=== PATIENT | male | born 1960 | race Caucasian/White ===

== ENCOUNTER → 2022-07-29 | Outpatient (CLI) | payer BC ==
--- NOTE | 2022-07-29 10:09 | NM ---
EXAMINATION TYPE: NM stress cardiolite complete DATE OF EXAM: 07/29/2022 COMPARISON: NONE HISTORY: Chest pain TECHNIQUE: After the intravenous administration of 10.2 mCi Tc 99m Sestamibi - Rest images obtained 45 minutes post injection. The patient exercised using a JONI protocol and 1 minute prior to peak exercise was injected with 26.2 mCi Tc 99m Sestamibi - Stress images obtained 30 minutes post injecti on. FINDINGS: Targeted heart rate was achieved during performance of the study. Review of stress and rest SPECT fany ges demonstrates no distinct perfusion abnormality. Gated analysis shows normal wall motion with an estimated left ventricular ejection fraction of 74 %. IMPRESSION: No scintigraphic evidence for reversible ischemia
--- NOTE | 2022-07-29 12:46 | CA ---
Exercise Nuclear Stress Test Report Name: Nataliia Pretty Exam Date: 07/29/2022 09:07 Exam Location: [facility] Ht (in): 72 Wt (lb): 225 BSA: 2.24 Ordering Phys: Randy Baez MD Referring Phys: Randy Baez MD Technologist: Jc Kiser Age: 62 Gender: M : 1960 Procedure CPT: Indications: R07.9 I49.8 ICD-10 Codes: Patient History: Medications: CELEXA,,,,,, ZYRTEC,,,,,, MELOXICAM,,,,,, SOTYKTA,,,,, Meds past 24 hrs: Pretest Chest Pain: STRESS TEST Valentino Protocol Exercise Duration (min:sec): 06:[address] Depressions (mm): Angina Score: Pace Score: Resting HR (bpm): 57 Peak HR (bpm): 142 Resting BP (mmHg): 136 / 77 Peak BP (mmHg): 216 / 78 MPHR: 156 Target HR: 133 % MPHR: 91 METS: 7.1 Total Dose: Peak Dose: Atropine: Double Product: 39274 BP Response: Stress Termination: TARGET HR REACHED/MAX EXERTION Stress Symptoms: DIFFICULTY IN BREATHING Stress Summary: ECG ANALYSIS Resting ECG: Stress ECG: CONCLUSIONS Excellent exercise tolerance Mild EKG changes in response to exercise The patient did have atrial tachycardia as well Dr. Miah Cifuentes MD (Electronically Signed) Final Date: 29 July 2022 12:45
== END | disposition home or self-care (01) ==
LOC: RADNMMAIN 07:41
PROVIDERS: ATTEND Family Medicine
DX: I47.1 Supraventricular tachycardia (principal); I49.8 Other specified cardiac arrhythmias; R94.31 Abnormal electrocardiogram [ECG] [EKG]
CPT/HCPCS: 93017; 78452; A9500

== ENCOUNTER → 2023-07-28 | Outpatient (CLI) | payer MEDICARE ==
[2023-07-28 17:06] LABS: HCT 41.6 % (39.6-50.0); MCH 29.5 pg (27.0-32.0); MCHC 33.7 g/dL (32.0-37.0); MCV 87.8 FL (80.0-97.0); Mean Platelet Volume 9.9 FL (9.5-12.2); NRBC Per 100 WBC 0 X 10*3/uL (0.00-0.01); Platelet Count 215 X 10*3/uL (140-440); RBC 4.74 X 10*6/uL (4.40-5.60); RDW 12.9 % (11.5-14.5); WBC 5.47 X 10*3/uL (4.50-10.00)
[2023-07-28 17:35] LABS: BUN/Creat Ratio 11.58 Ratio (12.00-20.00); Blood Urea Nitrogen 13.9 mg/dL (9.0-27.0); Calcium 9.3 mg/dL (8.7-10.3); Carbon Dioxide 28.7 mmol/L (21.6-31.8); Chloride 104 mmol/L (96-109); Glucose 110 mg/dL (70-110); Potassium 4.2 mmol/L (3.5-5.5); Sodium 141 mmol/L (135-145)
== END | disposition home or self-care (01) ==
LOC: LABWHC1 11:13
PROVIDERS: ATTEND Internal Medicine Cardiovascular Disease
DX: R06.1 Stridor (principal)
CPT/HCPCS: 36415; 80048; 84443; 85027

== ENCOUNTER → 2024-03-11 | Outpatient (CLI) | payer MEDICARE ==
--- NOTE | 2024-03-11 15:37 | MR ---
EXAMINATION TYPE: MR Prostate wo/w con DATE OF EXAM: 03/11/2024 7:39 AM COMPARISON: CLINICAL INDICATION: Male, 63 years old with history of N40.0 BENIGN PROSTATIC HYPERPLASIA; Benign hy perplasia, elevated PSA TECHNIQUE: Multi-planar, multi-sequence imaging of the pelvis is performed prior to and following the uncomplicated administration of bolus intravenous gadolinium. CONTRAST: 10 Gadobutrol Interpretive Criteria: PI-RADS v2.1 SERUM PSA: 05/2023=8.42 11/2023=6.96 SURGICAL PATHOLOGY: No data available. FINDINGS: Prostatic dimensions: 5.8 x 7.7 x 4.7 cm. Ellipsoid Volume:109.90 (PSA density=0.06 ng/mL/mL) CENTRAL GLAND (Central and Transition Zones/CZ+TZ): Multiple bilateral, heterogenous appearing hypertrophic stromal nodules, without suspicious lesion. M edian lobe hypertrophy with protrusion into the base of the bladder. (PI-RADS 2) PERIPHERAL ZONE (PZ): Bilateral linear, indistinct wedgelike areas of low ADC, and low T2 signal, No evidence of masslike a bnormality, or localized perfusional hypervascularity, to further suggest a focus of clinically signi ficant prostate cancer. (PI-RADS 2) SEMINAL VESICLES (SV): Symmetric and unremarkable. PERIPROSTATIC TISSUES: Unremarkable. LYMPH NODES: No enlarged pelvic lymph node. REMAINING PELVIS: Bladder wall is within normal limits given distention. No abnormal free or organized intrapelvic fluid collection. No pathologic bowel dilation or mural thickening. Colonic diverticula are present. No hernia visualized OSSEOUS STRUCTURES: No suspicious osseous abnormality. IMPRESSION: 1. No specific features for high-risk prostate cancer. Maximum PI-RADS score: 2. 2. Substantial BPH, estimated gland volume 109.90 mL. 3. No suspicious osseous lesion. No lymphadenopathy. No evidence of prostate adenocarcinoma involving the periprostatic tissues. [facility], Workstation: S[employer] [id number], 03/11/2024 3:35 PM
== END | disposition home or self-care (01) ==
LOC: RADMRIMAIN 06:44
PROVIDERS: ATTEND Family Medicine
DX: N40.0 Benign prostatic hyperplasia without lower urinary tract symptoms (principal)
CPT/HCPCS: 72197; A9585